=== PATIENT | female | born 1960 | race Caucasian/White ===

== ENCOUNTER 2024-03-18 12:39 | Outpatient (OUT) | payer SELFPAY ==
--- NOTE | 2024-03-18 | XR_ITS ---
[facility] [id number] Patient Name: SURI ROMO MRN: [id number] date: 1960 Sex: F Assigned Patient Location: Current Patient Location: Accession/Order Number: [id number] Exam Date: 03/18/2024 12:45 Report Date: 03/20/2024 05:36 At the request of: CIARA LARRY Procedure: XR lumbar spine min 4V EXAMINATION: XR lumbar spine min 4V HISTORY: LUMBAR SPINE PAIN COMPARISON: CT abdomen pelvis 03/01/2024, XR lumbar spine 02/07/2023 FINDINGS: BONES: Marked compression fracture and anterior wedging of T12. Normal height and alignment of the lumbar vertebral bodies. Mild degenerative facet arthropathy L4-L5, L5-S1. DISC SPACES: Moderate-marked narrowing L4-L5, L5-S1. Mild narrowing L3-L4. PARASPINOUS: Negative. No paraspinous abnormality is seen. OTHER: Negative. XR/XR lumbar spine min 4V IMPRESSION: 1. Marked compression fracture of T12; not appreciably changed. 2. Moderate degenerative disc disease of lower lumbar spine. 3. No significant listhesis or change in alignment during flexion and extension. Electronically authenticated by: CHRISTA HAYNES Date: 03/20/2024 05:36
== END 2024-03-18 12:40 | disposition home or self-care (01) ==
LOC: EC 12:42
PROVIDERS: Visit Provider Orthopaedic Surgery Orthopaedic Surgery of the Spine
DX: S22.080A Wedge compression fracture of T11-T12 vertebra, initial encounter for closed fracture (principal); S32.030A Wedge compression fracture of third lumbar vertebra, initial encounter for closed fracture
CPT/HCPCS: 72110

== ENCOUNTER 2024-07-15 11:42 | Outpatient (OUT) | payer OTHER, SELFPAY ==
--- NOTE | 2024-07-15 | XR_ITS ---
[facility] [id number] Patient Name: SURI ROMO MRN: [id number] date: 1960 Sex: F Assigned Patient Location: Current Patient Location: Accession/Order Number: [id number] Exam Date: 07/15/2024 11:44 Report Date: 07/19/2024 07:29 At the request of: CIARA LARRY Procedure: XR lumbar spine 2-3V EXAMINATION: XR lumbar spine 2-3V HISTORY: LUMBAR SPINE PAIN COMPARISON: No relevant comparison available. FINDINGS: BONES: Normal alignment with no spondylolisthesis. 40% anterior wedge compression fracture of L1. Mild spondylosis. [id number] facet osteoarthropathy DISC SPACES: Normal. No significant disc height narrowing, subluxation, or endplate abnormality. PARASPINOUS: Negative. No paraspinous abnormality is seen. OTHER: Negative. XR/XR lumbar spine 2-3V IMPRESSION: 40% L1 wedge compression fracture Electronically authenticated by: EMMA RAMIREZ Date: 07/19/2024 07:29
== END 2024-07-15 11:43 | disposition home or self-care (01) ==
LOC: EC 11:42
PROVIDERS: Visit Provider Orthopaedic Surgery Orthopaedic Surgery of the Spine
DX: S32.009D Unspecified fracture of unspecified lumbar vertebra, subsequent encounter for fracture with routine healing (principal)
CPT/HCPCS: 72100